=== PATIENT | female | born 1990 | race Caucasian/White ===

== ENCOUNTER 2017-12-29 21:25 | Outpatient (CLI) | END 2017-12-30 00:25 | disposition home or self-care (01) ==

== ENCOUNTER 2018-01-09 22:15 | Inpatient (IN) | END 2018-01-13 20:00 | disposition home or self-care (01) | DRG 766 ==

== ENCOUNTER 2018-02-15 14:12 | Observation (INO) | END 2018-02-16 14:00 | disposition home or self-care (01) ==